=== PATIENT | female | born 1965 | race Caucasian/White ===

== ENCOUNTER 2022-01-27 10:01 | Outpatient (CLI) | payer MEDICAID ==
[2022-01-27 12:13] LABS: BILIRUBIN,URINE NEGATIVE (NEGATIVE); GLUCOSE, URINE (UA) NEGATIVE (NEGATIVE); KETONES,URINE (UA) NEGATIVE (NEGATIVE); LEUKOCYTE ESTERASE, URINE NEGATIVE (NEGATIVE); NITRITE,URINE NEGATIVE (NEGATIVE); OCCULT BLOOD,URINE NEGATIVE (NEGATIVE); PH,URINE 6.5 PH (5.0-7.5); PROTEIN,URINE NEGATIVE (NEGATIVE); UROBILINOGEN,URINE 0.2 (NORMAL) E.U./dL (NORMAL)
[2022-01-27 12:21] LABS: CLARITY,URINE CLEAR (CLEAR)
[2022-01-27 12:23] LABS: RBC,URINE 0-5 /HPF (0-5); SQUAMOUS EPITHELIAL CELL,UR MOD Squamous (<= Few); WBC,URINE 0-3 /HPF (0-5)
[2022-01-27 12:24] LABS: BACTERIA,URINE Few /HPF (None Seen)
[2022-01-27 12:47] LABS: ESTIMATED AVERAGE GLUCOSE 146 mg/dL (70-100); HEMOGLOBIN A1c% 6.7 % (4.27-6.07)
[2022-01-27 13:00] LABS: BASOPHILS # (AUTO) 0.1 10^3/uL (0.0-0.1); BASOPHILS % (AUTO) 0.8 %; EOSINOPHILS # (AUTO) 0.3 10^3/uL (0.0-0.7); EOSINOPHILS % (AUTO) 2.7 %; HCT - HEMATOCRIT 44.7 % (37.0-47.0); HGB - HEMOGLOBIN 14.2 g/dL (12.0-16.0); LYMPHOCYTES # (AUTO) 2.3 10^3/uL (1.5-3.5); LYMPHOCYTES % (AUTO) 21.4 %; MEAN CORPUSCULAR HEMOGLOBIN 28.5 pg (27.0-31.0); MEAN CORPUSCULAR HGB CONC 31.8 g/dL (32.0-36.0); MEAN CORPUSCULAR VOLUME 89.6 fL (81.0-99.0); MEAN PLATELET VOLUME 10.1 fL (7.9-10.8); MONOCYTES # (AUTO) 0.4 10^3/uL (0.0-1.0); MONOCYTES % (AUTO) 3.7 %; NEUTROPHILS # (AUTO) 7.5 10^3/uL (1.5-6.6); NEUTROPHILS % (AUTO) 71.2 %; PLT - PLATELET COUNT 424 10^3/uL (130-450); RED BLOOD COUNT 4.99 10^6/uL (4.20-5.40); RED CELL DISTRIBUTION WIDTH 14.9 % (12.0-15.0); WHITE BLOOD COUNT 10.6 x10^3/uL (4.8-10.8)
[2022-01-27 13:03] LABS: ALBUMIN/GLOBULIN RATIO 1.1 (1.0-2.2); ALKALINE PHOSPHATASE 65 IU/L (42-121); ALT ALANINE AMINOTRANSFERASE 11 IU/L (10-60); AST ASPARTATE AMINOTRANSFERASE 13 IU/L (10-42); BILIRUBIN,TOTAL 0.4 mg/dL (0.2-1.0); BUN - BLOOD UREA NITROGEN 13 mg/dL (6-20); CALCIUM 8.6 mg/dL (8.5-10.3); CARBON DIOXIDE - CO2 23 mmol/L (21-32); CHLORIDE 105 mmol/L (101-111); CHOLESTEROL 185 mg/dL; CREATININE 0.9 mg/dL (0.4-1.0); GFR - MDRD 65 (>89); GLUCOSE 118 mg/dL (70-100); HDL CHOLESTEROL 46 mg/dL; LDL CHOLESTEROL,CALCULATED 66 mg/dL; LDL/HDL RATIO 1.4 (<4.4); POTASSIUM 4.2 mmol/L (3.5-5.0); SODIUM 137 mmol/L (135-145); TOTAL PROTEIN 7.5 g/dL (6.7-8.2); TRIGLYCERIDES 364 mg/dL; VLDL CHOLESTEROL 73 mg/dL
[2022-01-27 13:11] LABS: THYROID STIMULATING HORMONE 3.36 uIU/mL (0.34-5.60)
[2022-01-27 13:13] LABS: FREE T4 (FREE THYROXINE) 0.81 ng/dL (0.58-1.64)
== END 2022-01-27 10:02 | disposition home or self-care (01) ==
LOC: LAB.N 10:01
DX: E78.00 Pure hypercholesterolemia, unspecified (principal)
CPT/HCPCS: 36415; 80053; 80061; 81001; 82607; 83036; 83721; 84439; 84443; 85025

== ENCOUNTER 2022-11-07 15:57 | Emergency (ER) | payer MEDICAID ==
[2022-11-07] MEDS ORDERED: BUFFERED LIDOCAINE 10 ML SYRINGE SUBQ STA (16:00)
[2022-11-07 16:04] VITALS: BP 146/81
[2022-11-07] MEDS ORDERED: DOXYCYCLINE 100 MG TABLET PO STA (16:11)
--- NOTE | 2022-11-07 16:13 | ED Physician Documentation ---
PD HPI UPPER EXT INJURY - Stated complaint Stated Complaint: LEFT THUMB LAC - Chief complaint Chief Complaint: Laceration - History obtained from History obtained from: Patient - Additonal information Additional information: 57-year-old woman who had a last tetanus shot in 2014. She is left-hand dominant. Her macaw bit her to the left thumb earlier today. No other injuries. PD PAST MEDICAL HISTORY - Past Surgical History Past Surgical History: Yes Ortho: Other - Present Medications Home Medications: Ambulatory Orders Medication Instructions Recorded Confirmed Topiramate [Topamax] 150 mg PO DAILY 07/28/13 02/13/16 Gabapentin 300 mg PO BID 02/13/16 02/13/16 oxyCODONE [Roxicodone] 5 mg PO DAILY PRN 02/13/16 02/13/16 Doxycycline [Vibramycin] 100 mg PO BID #14 tablet 11/07/22 - Allergies Allergies/Adverse Reactions: Allergies Allergy/AdvReac Type Severity Reaction Status Date / Time Sulfa (Sulfonamide Allergy Mild Rash Verified 11/07/22 15:59 Antibiotics) - Social History Does the pt smoke?: No Smoking Status: Never smoker Does the pt drink ETOH?: No Does the pt have substance abuse?: No - Immunizations Immunizations are current?: No - POLST Patient has POLST: No PD ED PE NORMAL - Vitals Vital signs reviewed: Yes - General General: Alert and oriented X 3, No acute distress - Extremities Extremities: Other (She is a curved laceration over the radial side of the left thumb at the interphalangeal joint. She has full range of motion without tenderness. Normal neurovascular function at the tip.) - Neuro Neuro: Alert and oriented X 3, Normal speech Results - Vitals Vitals: Vital Signs - 24 hr 11/07/22 16:00 Temperature 36.8 C Heart Rate 89 Respiratory 16 Rate Blood Pressure 146/81 H O2 Saturation 99 Oxygen O2 Source Room air Procedures - Laceration (location) Left thumb Length in cm: 1.2 Wound type: Curved, Flap Neurovascular status: Sensory intact, Motor intact Tendon involvement: Tendon intact Anesthesia: Lidocaine 1% (Digital block with buffered lidocaine) Wound preparation: Irrigated copiously NS Skin layer closure: Nylon, Size #-0 - enter number (4-0), Sutures - enter # (3) Other: Patient tolerated well, No complications, Neurovascular intact, Tetanus UTD PD Medical Decision Making - ED course ED course: Per online guidelines, parrot bite injury should be prophylaxed with doxycycline to prevent Pasteurella and psittacosis. Departure - Departure Disposition: 01 Home, Self Care Clinical Impression: Bitten by parrot, initial encounter, Laceration of thumb Condition: Good Record reviewed to determine appropriate education?: Yes Instructions: ED Laceration Hand Prescriptions: Doxycycline [Vibramycin] 100 mg PO BID #14 tablet Comments: I sent your prescription electronically to [facility] in [place]. Please note they are only open until 5 today so go straight there. Come back for any signs of infection which would include: Redness, swelling, drainage, increased pain, or fevers. You can wash it soap and water. Keep it covered and moist with bacitracin ointment which is available over the counter; avoid neosporin. Follow-up with your physician in 14 days for suture removal.
== END 2022-11-07 16:27 | disposition home or self-care (01) ==
LOC: ED 15:57
DX: S61.012A Laceration without foreign body of left thumb without damage to nail, initial encounter (principal); W61.11XA Bitten by macaw, initial encounter
CPT/HCPCS: 12001; 99282; A9270

== ENCOUNTER 2023-05-24 18:12 | Emergency (ER) | payer MEDICAID ==
[2023-05-24] MEDS ORDERED: HYDROcod/ACETAM 5/325 MG TABLET PO STA (19:05)
--- NOTE | 2023-05-24 19:06 | ED Physician Documentation ---
History of Present Illness - Stated complaint Stated Complaint: RT KNEE PX - Chief complaint Chief Complaint: Ext Problem - Additonal information Additional information: 57-year-old female presents emergency department for evaluation of acute right knee and ankle pain. Reports mechanical trip and fall directly onto concrete. She states that she was able to get up and hobble along because she was helping a gentleman who is in a motorized wheelchair but as the afternoon is gone on pain is progressively worse. Now she has difficulty even flexing the knee. She does report a history of previous knee injury and internal derangement. She also has a history of previous ankle fracture with hardware placement. Review of Systems Musculoskeletal: reports: Extremity pain, Joint pain PD PAST MEDICAL HISTORY - Past Surgical History Past Surgical History: Yes Ortho: Other - Present Medications Home Medications: Ambulatory Orders Medication Instructions Recorded Confirmed HYDROcod/ACETAM 5/325 [Woodland 5/325] 1 tablet PO BID PRN #10 tablet 05/24/23 QUEtiapine [SEROquel] 25 mg PO HS 05/24/23 05/24/23 - Allergies Allergies/Adverse Reactions: Allergies Allergy/AdvReac Type Severity Reaction Status Date / Time Sulfa (Sulfonamide Allergy Mild Rash Verified 05/24/23 18:24 Antibiotics) - Social History Does the pt smoke?: No Smoking Status: Never smoker Does the pt drink ETOH?: No Does the pt have substance abuse?: No - Immunizations Immunizations are current?: No - POLST Patient has POLST: No PD ED PE EXPANDED - General General: Alert, In Pain - Extremities Extremities: Right knee (Moderate swelling and ecchymosis to the patella of the right knee. The entire knee is tender to even light palpation. Patient will not allow laxity testing. Unable to flex the knee but is able to extend when prompted. ), Right ankle (Tenderness along the scar line of the lateral malleolus without obvious deformity. Full range of motion of the ankle in all planes.) Results - Vitals Vitals: Vital Signs - 24 hr 05/24/23 05/24/23 18:18 19:52 Temperature 36.8 C 36.9 C Heart Rate 95 92 Respiratory 18 16 Rate Blood Pressure 143/81 H 142/71 H O2 Saturation 95 96 Oxygen O2 Source Room air - Rads (name of study) right knee xr Relevant Findings:: EMP independent interpretation of test (No acute fracture or osseous lesion or dislocation) right ankle xr Relevant Findings:: EMP independent interpretation of test (Lateral hardware is intact. No acute fracture or osseous lesion or dislocation) PD Medical Decision Making - ED course Complexity details: reviewed results, d/w patient ED course: 57-year-old female here for acute right knee and ankle pain. Does have a history of previous fracture to the right ankle. Mechanical fall on concrete this afternoon causing some bruising and swelling to the right knee. The entire knee was generally tender. An x-ray as interpreted by myself showed no acute fracture. The right ankle x-ray also showed no fracture and the hardware appears intact. Patient was placed in knee immobilizer and given crutches. Discussed routine RICE precautions for contusion and suspected sprain. If not markedly better in 7 to 10 days may benefit from repeat imaging and/or follow-up with orthopedics. Patient will follow closely with her PCP. Departure - Departure Disposition: 01 Home, Self Care Clinical Impression: Ground-level fall Contusion of right knee Qualifiers: Encounter type: initial encounter Qualified Code(s): S80.01XA - Contusion of right knee, initial encounter Right ankle pain Qualifiers: Chronicity: acute Qualified Code(s): M25.571 - Pain in right ankle and joints of right foot Condition: Stable Instructions: ED Contusion Lower Extr Ch Prescriptions: HYDROcod/ACETAM 5/325 [Woodland 5/325] 1 tablet PO BID PRN #10 tablet PRN Reason: Pain Comments: As discussed at the bedside I do not see an obvious fracture on the x-rays of your knee and ankle. It is possible that you have a contusion and bruising. You also may have a mild sprain. In general these types of conditions will begin to get better over about 7 to 10 days. If not markedly better you may need to be referred to orthopedics for follow-up. General I recommend that you take Tylenol and ibuprofen [id number] for discomfort. You should wear the knee immobilizer and utilize crutches over the next week until your pain begins to improve. For more severe pain I have prescribed a very limited amount of Woodland that cannot be refilled from the emergency department. Please discuss this ED visit with your primary care doctor as soon as possible in order to help arrange further follow-up. I am prescribing a short course of narcotic pain medication for you. These are potentially dangerous and addictive medications that should be used carefully. These medications may constipate you. Take an yfib-bsd-lodajue stool softener (docusate) twice daily with plenty of water while taking these medications. If you go 24 hours without a bowel movement, take dujn-fap-mprttyz miralax, per package instructions. Do not drink or drive while taking these medications. If you received narcotic or sedating medications while in the emergency department, do not drive for 24 hours. Store this medication in a safe, secure place and out of reach of children. It is a violation of federal law to give or sell this medication to another person or to use in a manner other than prescribed. The ED will not refill narcotic prescriptions, including prescriptions lost or stolen. To dispose of unwanted medications: 1. [facility] at [address] in [place] has a medication drop box. They accept prescription medications (in pill form) Tuesday through Tuesday 9:00 a.m. to 5:00 p.m. 2. The [facility] accepts prescription medications (in pill form only) for disposal year round. Call for more information. 3. Contact the [facility] for the next [facility] sponsored prescription drug collection event. , [phone], or [phone]; Note that many narcotic pain relievers also contain Tylenol/acetaminophen. Please ensure that your total dose of acetaminophen from all sources does not exceed 3 g (3000 mg) per day. Forms: PCP List
[2023-05-24 20:13] VITALS: BP 142/71
--- NOTE | 2023-05-24 20:19 | XRAY Report ---
PROCEDURE: Knee 3 View RT INDICATIONS: PAIN/TENDERNESS R KNEE TECHNIQUE: 3 views of the right knee(s) were acquired. COMPARISON: None. FINDINGS: Bones: No fractures or dislocations. No suspicious bony lesions. Soft tissues: No knee joint effusion. No suspicious soft tissue calcifications or masses. IMPRESSION: No visualized acute fracture or dislocation. However, occult injury cannot be excluded. Recommend alfred rt interval imaging follow-up in 7-10 days as clinically indicated for additional evaluation. Reviewed by: Anusha Rodriguez MD on 05/24/2023 8:18 PM PDT Approved by: Anusha Rodriguez MD on 05/24/2023 8:18 PM PDT Station ID: [id number]
--- NOTE | 2023-05-24 20:20 | XRAY Report ---
PROCEDURE: Ankle 3 View RT INDICATIONS: PAIN/TENDERNESS/SWELLING R ANKLE TECHNIQUE: 3 views of the ankle were acquired. COMPARISON: None. FINDINGS: Bones: Calcification is present adjacent to the medial malleolus.. Ankle mortise is normally aligne d. No suspicious bony lesions. Distal fibular fixation. Hardware is intact without evidence of yony dware fracture or periprosthetic lucency to suggest loosening. Soft tissues: No tibiotalar joint effusion. Achilles tendon appears normal. IMPRESSION: Calcification adjacent to the medial malleolus appearing consistent with fracture. Recommend correlat ion point tenderness. Reviewed by: Anusha Rodriguez MD on 05/24/2023 8:19 PM PDT Approved by: Anusha Rodriguez MD on 05/24/2023 8:19 PM PDT Station ID: [id number]
== END 2023-05-24 20:15 | disposition home or self-care (01) ==
LOC: ED 18:12
DX: S82.51XA Displaced fracture of medial malleolus of right tibia, initial encounter for closed fracture (principal); S80.01XA Contusion of right knee, initial encounter; W01.0XXA Fall on same level from slipping, tripping and stumbling without subsequent striking against object, initial encounter
CPT/HCPCS: 73562; 73610; 99283; 99284; A9270

== ENCOUNTER 2023-06-08 07:45 | Outpatient (CLI) | payer MEDICAID, OTHER ==
--- NOTE | 2023-06-08 14:53 | XRAY Report ---
PROCEDURE: Ankle 3 View RT INDICATIONS: RIGHT ANKLE PAIN TECHNIQUE: 3 views of the ankle were acquired. COMPARISON: X-ray right ankle, 05/24/2023. FINDINGS: Bones: ORIF of lateral malleolus fracture with stable postsurgical appearance. There is a corticated ossicle adjacent to the medial malleolus, compatible with remote injury. No fractures or dislocation s. Ankle mortise is normally aligned. No suspicious bony lesions. Mild osteoarthritic changes are n oted. Soft tissues: No tibiotalar joint effusion. Achilles tendon appears normal. IMPRESSION: 1. No acute bony abnormality. 2. ORIF of old lateral malleolar fracture. 3. A corticated ossicle adjacent to the medial malleolus, likely sequelae of remote injury. 4. Mild osteoarthritis. Reviewed by: Rosa Maria Resendez MD on 06/08/2023 2:52 PM PDT Approved by: Rosa Maria Resendez MD on 06/08/2023 2:52 PM PDT Station ID: [id number]
--- NOTE | 2023-06-08 15:03 | XRAY Report ---
PROCEDURE: Knee 4 View RT INDICATIONS: RIGHT KNEE PAIN TECHNIQUE: 4 views of the right knee(s) were acquired. COMPARISON: None. FINDINGS: Bones: No fractures or dislocations. No suspicious bony lesions. Mild osteoarthritic changes are no dk. Soft tissues: Trace knee joint effusion. No suspicious soft tissue calcifications or masses. IMPRESSION: 1. No acute bony abnormality. 2. Mild osteoarthritis. 3. Trace knee joint effusion. 4. If there is clinical suspicion for internal derangement, consider MRI for further evaluation. Reviewed by: Rosa Maria Resendez MD on 06/08/2023 3:02 PM PDT Approved by: Rosa Maria Resendez MD on 06/08/2023 3:02 PM PDT Station ID: [id number]
== END 2023-06-08 23:59 | disposition home or self-care (01) ==
LOC: DI.WOS 07:45
PROVIDERS: ATTEND Orthopaedic Surgery
DX: S80.01XA Contusion of right knee, initial encounter (principal); M17.11 Unilateral primary osteoarthritis, right knee; M25.461 Effusion, right knee; R93.6 Abnormal findings on diagnostic imaging of limbs; M19.071 Primary osteoarthritis, right ankle and foot; Y99.0 Civilian activity done for income or pay